=== PATIENT | male | born 1985 | race Caucasian/White ===

== ENCOUNTER 2017-09-26 08:02 | Emergency (ER) | payer BC, OTHER, SELFPAY ==
[2017-09-26] MEDS ORDERED: Ibuprofen 800 MG TAB ONE (09:26)
== END 2017-09-26 09:41 | disposition home or self-care (01) ==
LOC: ERS 08:02
DX: S16.1XXA Strain of muscle, fascia and tendon at neck level, initial encounter (principal); S29.012A Strain of muscle and tendon of back wall of thorax, initial encounter; G47.30 Sleep apnea, unspecified; F43.10 Post-traumatic stress disorder, unspecified; V89.2XXA Person injured in unspecified motor-vehicle accident, traffic, initial encounter; W22.10XA Striking against or struck by unspecified automobile airbag, initial encounter
CPT/HCPCS: 99283